=== PATIENT | male | born 1965 | race Caucasian/White ===

== ENCOUNTER 2019-06-06 17:44 | Emergency (ER) | payer BC ==
[~2019-06-06] VITALS: Ht 180.3 cm; Wt 104.5 kg
[2019-06-06 18:24] LABS: BASOPHILS % (AUTO) 0.3 % (0-1); EOSINOPHILS # (AUTO) 0.1 X10'3 (0-0.9); EOSINOPHILS % (AUTO) 2.1 % (0-6); HEMATOCRIT 46.2 % (42.0-52.0); HEMOGLOBIN 15.4 g/dl (14.0-17.9); LYMPHOCYTES # (AUTO) 1.8 X10'3 (1.1-4.8); MEAN CORPUSCULAR HEMOGLOBIN 28.8 PG (27.0-31.0); MEAN CORPUSCULAR HGB CONC 33.3 g/dL (33.0-36.5); MEAN CORPUSCULAR VOLUME 86.4 FL (78-98); MEAN PLATELET VOLUME 8.7 FL (7.4-10.4); MONOCYTES # (AUTO) 0.4 X10'3 (0-0.9); MONOCYTES % (AUTO) 6.5 % (2-12); NEUTROPHILS % (AUTO) 63.1 % (42-75); PLATELET COUNT 220 X10'3 (140-440); RED BLOOD COUNT 5.35 X10'6 (4.70-6.10); RED CELL DISTRIBUTION WIDTH 14.4 % (11.5-14.5); WHITE BLOOD COUNT 6.4 X10'3 (4.5-11.0)
--- NOTE | 2019-06-06 18:29 | NUR ---
unable to place pt on [facility] monitor due to pt at risk for having covid and being placed in covid tents in [place]. pa aware.
[2019-06-06 18:37] LABS: ALANINE AMINOTRANSFERASE 29 U/L (12-78); ALBUMIN 4.4 G/DL (3.4-5.0); ALBUMIN/GLOBULIN RATIO 1.1 (1.1-1.5); ALKALINE PHOSPHATASE 72 IU/L (46-116); ANION GAP 12 (8-16); ASPARTATE AMINO TRANSFERASE 18 U/L (10-37); BILIRUBIN,TOTAL 0.2 MG/DL (0.1-1.0); BLOOD UREA NITROGEN 17 MG/DL (7-18); BUN/CREATININE RATIO 17.7 (5.4-32.0); CHLORIDE 106 MMOL/L (99-107); CREATININE 0.96 MG/DL (0.60-1.10); GLUCOSE 105 MG/DL (70-104); POTASSIUM 4.1 MMOL/L (3.5-5.1); SODIUM 142 MMOL/L (135-145); TOTAL PROTEIN 8.3 G/DL (6.4-8.2); eGFR 82 ML/MIN
[2019-06-06] MEDS ORDERED: ipratropium/albuterol 3ml nebule NEB ONE (18:55)
[2019-06-06 19:12] VITALS: BP 142/94
--- NOTE | 2019-06-06 19:20 | NUR ---
pt moved to [facility] in [place] for respiratory treatment in closed room.
[2019-06-06] MEDS ORDERED: AZIT-31 PO (19:51)
[2019-06-06] MEDS ORDERED: ALBU18HF2 INH (19:51)
== END 2019-06-06 20:12 | disposition home or self-care (01) ==
LOC: EEVIPCON 17:44 → ER 17:44
DX: J69.0 Pneumonitis due to inhalation of food and vomit (principal); R06.2 Wheezing; Z72.89 Other problems related to lifestyle; Z88.0 Allergy status to penicillin; Z79.2 Long term (current) use of antibiotics; Z79.899 Other long term (current) drug therapy
CPT/HCPCS: 36415; 71045; 80053; 83880; 85025; 93005; 94640; 94760; 99285

== ENCOUNTER 2023-09-02 22:21 | Observation (INO) | payer BC ==
[~2023-09-02] VITALS: Ht 180.3 cm; Wt 92.0 kg
[~2023-09-02 22:21] MED LIST: ALBU18HF2 INH
[2023-09-02] MEDS ORDERED: iohexol 350MG/ML 100ml bottle IV ONE (22:31)
[2023-09-02 22:53] LABS: MEAN PLATELET VOLUME 8.7 FL (7.4-10.4)
[2023-09-02 22:54] LABS: BASOPHILS % (AUTO) 0.4 % (0-1); EOSINOPHILS # (AUTO) 0.2 X10'3 (0-0.9); EOSINOPHILS % (AUTO) 3.2 % (0-6); LYMPHOCYTES # (AUTO) 2.2 X10'3 (1.1-4.8); LYMPHOCYTES % (AUTO) 39.3 % (21-51); MEAN CORPUSCULAR HEMOGLOBIN 28.4 PG (27.0-31.0); MEAN CORPUSCULAR HGB CONC 34.1 g/dL (33.0-36.5); MEAN CORPUSCULAR VOLUME 83.3 FL (78-98); MONOCYTES # (AUTO) 0.5 X10'3 (0-0.9); MONOCYTES % (AUTO) 8.8 % (2-12); NEUTROPHILS # (AUTO) 2.7 X10'3 (1.8-7.7); NEUTROPHILS % (AUTO) 48.3 % (42-75); PLATELET COUNT 189 X10'3 (140-440); RED BLOOD COUNT 5.28 X10'6 (4.70-6.10); RED CELL DISTRIBUTION WIDTH 14.8 % (11.5-14.5); WHITE BLOOD COUNT 5.7 X10'3 (4.5-11.0)
[2023-09-02 23:02] LABS: APTT 26 SECONDS (22-32)
[2023-09-02 23:10] LABS: ALBUMIN 3.7 G/DL (3.4-5.0); ANION GAP 8 (8-16); BLOOD UREA NITROGEN 26 MG/DL (7-18); CALCIUM 9.3 MG/DL (8.5-10.1); CHLORIDE 103 MMOL/L (99-107); CREATININE 1.18 MG/DL (0.60-1.10); GLUCOSE 117 MG/DL (70-104); POTASSIUM 4.2 MMOL/L (3.5-5.1); PRO BRAIN NATRIURETIC PEPTIDE < 30 PG/ML (0-125); SODIUM 138 MMOL/L (135-145); TOTAL CARBON DIOXIDE 26.6 MMOL/L (24-32); eCRCL 73 ML/MIN; eGFR 63 ML/MIN
[2023-09-03 00:34] LABS: BILIRUBIN,URINE NEGATIVE (Neg); CLARITY,URINE CLEAR (Clear); COLOR,URINE STRAW (Yellow); GLUCOSE, URINE NEGATIVE (Neg); KETONES,URINE TRACE mg/dl (Neg); LEUKOCYTE ESTERASE ,URINE NEGATIVE (Neg); NITRITES, URINE NEGATIVE (Neg); OCCULT BLOOD,URINE NEGATIVE (Neg); PROTEIN,URINE NEGATIVE (Neg); UROBILINOGEN,URINE 0.2 E.U/dL (0.2-1.0)
[2023-09-03 00:44] LABS: UA COLLECTION TYPE CLN CATCH MIDSTREAM
[2023-09-03] MEDS ORDERED: potassium Cl 40MEQ/1/2NS 520ml 520 ML IV PRN (00:55)
[2023-09-03] MEDS ORDERED: ondansetron/PF 4mg/2ml inj IV PRN (00:55)
[2023-09-03] MEDS ORDERED: magnesium hydroxide 30ml (MOM) UD suspension PO PRN (00:55)
[2023-09-03] MEDS ORDERED: magnesium Cl slow-release 64mg tablet PO PRN (00:55)
[2023-09-03] MEDS ORDERED: magnesium sulf-water 2g/50mL 50 ML IV PRN (00:55)
[2023-09-03] MEDS ORDERED: magnesium sulf-water 4G/100mL 100 ML IV PRN (00:55)
[2023-09-03] MEDS ORDERED: acetaminophen 325mg tablet PO PRN (00:55)
[2023-09-03] MEDS ORDERED: potassium Cl 20 mEq SR tablet PO PRN ×2 (00:55)
[2023-09-03] MEDS ORDERED: mag hydrox/Alum hydrox/simeth 30ml oral suspension PO PRN (00:55)
[2023-09-03 01:00] VITALS: RESP 18; O2SAT 96
[2023-09-03 01:45] VITALS: BP 177/90; PULSE 91; RESP 16; TEMP 98.2; O2SAT 97
[2023-09-03 01:57] LABS: CHOLESTEROL 231 MG/DL (0-200); HDL CHOLESTEROL 29 MG/DL (35-60); LDL CHOLESTEROL 154 MG/DL (50-100); TRIGLYCERIDES 254 MG/DL (20-135)
[2023-09-03] MEDS: amLODIPine 5mg tablet PO ONE (01:58)
[2023-09-03 04:00] VITALS: BP 160/82; PULSE 83; RESP 18; TEMP 97.7; O2SAT 99
[2023-09-03 06:55] LABS: URINE AMPHETAMINE SCREEN NEGATIVE (Neg); URINE BARBITUATE SCREEN NEGATIVE (Neg); URINE BENZODIAZEPINES SCREEN NEGATIVE (Neg); URINE CANNABINOID SCREEN NEGATIVE (Neg); URINE COCAINE SCREEN NEGATIVE (Neg); URINE METHADONE SCREEN NEGATIVE (Neg); URINE OPIATE SCREEN NEGATIVE (Neg); URINE PHENCYCLIDINE SCREEN NEGATIVE (Neg)
[2023-09-03] MEDS: K and/or MAG REPLACEMENT MC SCH (07:31)
[2023-09-03 07:39] VITALS: BP_SYST 149; BP_SYST 160; BP_SYST 165; BP_DIAS 82; BP_DIAS 84; BP_DIAS 92; PULSE 102; PULSE 82; PULSE 83
[2023-09-03] MEDS: heparin, porcine 5000 units/ml vial SQ SCH (08:00)
[2023-09-03 08:45] VITALS: BP 162/83; PULSE 93; RESP 18; TEMP 97.4; O2SAT 98; O2SAT 99
[2023-09-03] MEDS ORDERED: LOSA50TA64 PO (09:44)
[2023-09-03] MEDS ORDERED: ATOR20TA66 PO (09:44)
[2023-09-03] MEDS ORDERED: ASPI-1265 PO (09:44)
[2023-09-03] MEDS ORDERED: AMLO5TAB4 PO (09:44)
[2023-09-03] MEDS ORDERED: FENO43CA8 PO (09:45)
== END 2023-09-03 10:15 | disposition home or self-care (01) ==
LOC: ER 22:22 → ORTHO 4S 09-03 00:54 → UNDOADMIN 09-03 00:54 → ORTHO 4S 09-03 00:58 → INTOOBSV 09-03 00:58 → UNDODISIN 09-03 10:15
PROVIDERS: ADMIT Internal Medicine Critical Care Medicine; ATTEND Internal Medicine
DX: G45.4 Transient global amnesia (principal); I10 Essential (primary) hypertension; E78.5 Hyperlipidemia, unspecified; Z86.011 Personal history of benign neoplasm of the brain; Z88.0 Allergy status to penicillin; Z79.899 Other long term (current) drug therapy; Z86.2 Personal history of diseases of the blood and blood-forming organs and certain disorders involving the immune mechanism
CPT/HCPCS: 36415; 70450; 70496; 70498; 70551; 71045; 80048; 80061; 80305; 81003; 82140; 83036; 83880; 84443; 84484; 85025; 85610; 85730; 86885; 86900; 86901; 87081; 93005; 99285; G0378; Q9967